=== PATIENT | male | born 1975 | race African-American/Black ===

== ENCOUNTER 2020-11-25 10:04 | Emergency (ER) | payer OTHER, SELFPAY ==
[2020-11-25 10:06] VITALS: BP 137/98; PULSE 87; RESP 18; TEMP 36.8; O2SAT 97; BMI 25.8
--- NOTE | 2020-11-25 10:08 | XR_ITS ---
PROCEDURE: XR ANKLE LT MIN 3V CLINICAL INDICATION: ankle injury COMPARISON: No exams were available for comparison FINDINGS: No fracture or dislocation. No lytic or blastic change. There is normal mineralization. The joint spaces are well-preserved. No significant degenerative/arthritic changes. No erosive changes evident. Other findings:There is soft tissue swelling at the lateral malleolar region. IMPRESSION: Soft tissue swelling otherwise negative Dictated by: Chinmay Benitez MD 11/25/2020 10:55 Chinmay Benitez MD in [place] 11/25/2020 10:55
--- NOTE | 2020-11-25 10:08 | XR_ITS ---
PROCEDURE: XR FOOT LT MIN 3V CLINICAL INDICATION: ankle injury Pain COMPARISON: No exams were available for comparison FINDINGS: Faint calcification is noted at the base and medial aspect of the 2nd metatarsal. There is also a faint trujillo shaped lucency at this area. Nondisplaced fracture is considered. Please correlate with patient's area of pain and tenderness. A faint curvilinear lucency is also noted at the base of the 3rd and 4th metatarsals. These also raise the question of a nondisplaced fractures versus Mach lines. A lucency is also noted along the dorsal anterior aspect of the tarsometatarsal junction on the lateral view. There is good alignment at the 2nd tarsal metatarsal junction. IMPRESSION: Possible nondisplaced fractures at the 2nd 3rd and 4th metatarsals. Consider CT for confirmation. Dictated by: Chinmay Benitez MD 11/25/2020 10:59 Chinmay Benitez MD in [place] 11/25/2020 10:59
--- NOTE | 2020-11-25 10:52 | HMH.EDGENADL ---
ED Disposition Clinical Impression: Lisfranc fracture Disposition: Home, Self-Care Condition on Discharge: Good Additional Instructions: Follow-up with orthopedic surgery within the next few days. Return to emergency department should you have any other concerns within the next few hours take Tylenol as needed for pain - Critical Care Critical Care Time: No Attestation: On , the high probability of a clinically significant, sudden or life threatening deterioration of the following system(s) required my full and direct attention, intervention and personal management. The time I documented below is in addition to time spent performing reported procedures but includes the following listed in this critical care notation. Medical Decision Making - Medical Records Medical records reviewed: Yes: I reviewed the patient's medical records. - [place] Inquiry Pt receiving controlled substance: No Vital Signs: 11/25/20 10:06 11/25/20 12:30 Temperature 98.3 F Temperature Source Oral Pulse Rate 95 H Pulse Rate [Right] 87 Respiratory Rate 18 Blood Pressure 136/94 H Blood Pressure [Right Arm] 137/98 H Blood Pressure Mean [Right Arm] 111 02 Sat by Pulse Oximetry 97 94 L Oxygen Delivery Method Room Air Room Air Medical Decision Narrative: 45-year-old male presents with left ankle injury. He is in no acute distress nontoxic-appearing comfortable in the bed. No other injuries per report. No chest pain abdominal pain. He is able to bear weight at this time. X-ray obtained to assess for underlying fracture. X-ray of foot showed possible Lisfranc fracture, as this was confirmed on CT scan. He is still in no acute distress nontoxic-appearing plan to place in foot boot and refer to orthopedics for outpatient management. He was agreeable to this plan. General Adult HPI - General Chief complaint: Extremity Injury, Lower Stated complaint: Fall w/ left foot pain and lef knee pain Time Seen by Provider: 11/25/20 10:20 Mode of Arrival: Family Vehicle Limitations: No Limitations Description of Symptoms (Recalled from ER Triage Doc. by RN): EMS reports they were called out for a mechanical fall that occurred yesterday. EMS reports patient has a history of falls. Patient denies LOC, denies neck pain, denies any other symptoms. - History of Present Illness HPI narrative: 45-year-old male with pain to left ankle for 1 day. He says he was walking yesterday and twisted his ankle. He did not have a syncope event or loss of consciousness or headache. No nausea or vomiting. No other injuries. He is having worsening pain in the foot worse with movement and there is swelling as well now. Pain is constant dull nonradiating he is able to bear weight - Related Data Home Medications Medication Instructions Recorded Confirmed Lactobacillus acidophilus 10 mg PO DAILY 04/04/18 04/04/18 benztropine 1 mg tablet 1 mg PO BID 04/04/18 04/04/18 divalproex 500 mg tablet,delayed 500 mg PO TID 04/04/18 04/04/18 release fenofibrate nanocrystallized 145 145 mg PO DAILY 04/04/18 04/04/18 mg tablet olanzapine 20 mg tablet 20 mg PO DAILY 04/04/18 04/04/18 omeprazole 40 mg capsule,delayed 40 mg PO DAILY 04/04/18 04/04/18 release perphenazine 16 mg tablet 16 mg PO BID 04/04/18 04/04/18 trazodone 100 mg tablet 100 mg PO DAILY 04/04/18 04/04/18 venlafaxine 150 mg 150 mg PO DAILY 04/04/18 04/04/18 capsule,extended release 24 hr Previous Rx's Medication Instructions Recorded albuterol sulfate 90 mcg/actuation 1 puff INHALATION Q6H PRN #6.7 g 04/04/18 aerosol inhaler Allergies Allergy/AdvReac Type Severity Reaction Status Date / Time No Known Allergies Allergy Verified 04/04/18 19:38 [facility] History - Hepatitis A Screen Drug use history?: No High risk sexual behaviors?: No History of sexually transmitted infection?: No Currently employed?: No Childcare worker?: No Do you have indoor plumbing?: Yes Do you darling
--- NOTE | 2020-11-25 11:24 | CT_ITS ---
PROCEDURE: CT FOOT LT WO CON CLINICAL HISTORY: confirmation of metatarsal fracture of foot on xra Injury with pain COMPARISON: No exams were available for comparison TECHNIQUE: Axial images obtained with sagittal and coronal reformats. All CT scans at the facility use one or more dose reduction, viz: automated exposure control, ma/kV adjustment per patient size (including targeted exams where dose is matched to indication, i.e. head), or iterative reconstruction technique. FINDINGS: The distal tibia, fibula, talus, calcaneus, navicular, and cuboid have an unremarkable appearance. And 11 by 3 mm bony fragment is present in the 1st intermetatarsal space consistent with an avulsion fracture which may be from the distal aspect and lateral aspect of the medial cuneiform. This could also be arising from the proximal aspect of the 1st metatarsal.. Avulsion fracture also suspected at the proximal and lateral aspect of the 1st metatarsal. Avulsion fracture also noted along the dorsal and distal aspect of the medial cuneiform. Comminuted fracture involves the proximal aspect of the 2nd metatarsal. An oblique fracture involves the superior surface wall comminuted fracture involves the posterior surface. There is widening of the 1st intermetatarsal space proximally which measures 7 mm in with. There is 3 mm lateral displacement of the base of the 2nd metatarsal on the mid cuneiform. Longitudinal fracture involves the dorsal proximal aspect of the 3rd metatarsal with a comminuted component of the fracture involving the plantar and proximal aspect of the 3rd metatarsal. There is mild lateral displacement of the 3rd metatarsal by approximately 2-3 mm. A transverse nondisplaced fracture involves the proximal aspect of the 4th metatarsal at the diaphyseal metaphyseal junction. There is diffuse soft tissue swelling along the dorsal aspect of the midfoot and forefoot IMPRESSION: Lisfranc fracture subluxation with fractures involving the proximal aspect of the 1st 2nd 3rd and 4th metatarsals as well as the medial cuneiform with lateral subluxation of the 2nd and 3rd metatarsals and widening of the 1st intermetatarsal space. Dictated by: Chinmay Benitez MD 11/25/2020 12:42 Chinmay Benitez MD in [place] 11/25/2020 12:42
--- NOTE | 2020-11-25 12:09 | PC.NURSE ---
Pt to CT at this time
[2020-11-25 12:30] VITALS: BP 136/94; PULSE 95; O2SAT 94
--- NOTE | 2020-11-25 12:51 | PC.NURSE ---
waiting [employer] operator back from Dr. Licea, left message with office staff.
--- NOTE | 2020-11-25 13:35 | PC.NURSE ---
attempting to call [facility], no answer at this time
--- NOTE | 2020-11-25 14:15 | SW/DCPLANNER ---
I have arranged [employer] for this patient. Per [employer] up driver will be here within next 10 minutes. I will call and inform July in ED.
--- NOTE | 2020-11-25 14:22 | PC.NURSE ---
CALLED DR. LOW'S OFFICE AND LEFT A VOICEMAIL TO RECEIVE A CALL BACK ABOUT THE PATIENT'S APPOINTMENT.
--- NOTE | 2020-11-25 14:25 | PC.NURSE ---
patient has an appointment at Dr. Clayton's office at 1500 on 11/25/20. Mariel Gaytan will made aware
--- NOTE | 2020-11-25 14:32 | PC.NURSE ---
Gave status report to Mariel Gaytan, patient's INTERMEDIATE. Mariel aware of patients 3pm appointment at Dr. Clayton's office
[2020-11-25 14:42] VITALS: BP 132/65; PULSE 76; RESP 16; TEMP 36.8; O2SAT 98
== END 2020-11-25 14:40 | disposition home or self-care (01) ==
PROVIDERS: Emergency Provider Emergency Medicine
DX: S92.315A Nondisplaced fracture of first metatarsal bone, left foot, initial encounter for closed fracture (principal); S92.325A Nondisplaced fracture of second metatarsal bone, left foot, initial encounter for closed fracture; S92.335A Nondisplaced fracture of third metatarsal bone, left foot, initial encounter for closed fracture; S92.345A Nondisplaced fracture of fourth metatarsal bone, left foot, initial encounter for closed fracture; X50.1XXA Overexertion from prolonged static or awkward postures, initial encounter; Y92.019 Unspecified place in single-family (private) house as the place of occurrence of the external cause; K21.9 Gastro-esophageal reflux disease without esophagitis; F20.9 Schizophrenia, unspecified; Z87.820 Personal history of traumatic brain injury; F17.210 Nicotine dependence, cigarettes, uncomplicated
CPT/HCPCS: 73610; 73630; 73700; 99283

== ENCOUNTER → 2020-12-29 10:22 | Outpatient (CLI) | payer OTHER, SELFPAY ==
--- NOTE | 2020-12-29 10:42 | XR_ITS ---
PROCEDURE: XR FOOT WT BEARING LT 3V CLINICAL INDICATION: fracture follow up COMPARISON: CR XR FOOT LT MIN 3V from 11/25/2020 FINDINGS: There is mild widening of the 1st intermetatarsal space with minimal subluxation laterally of the 2nd metatarsal. Healing fractures involve the 2nd 3rd and 4th metatarsals proximally. Other findings:None. IMPRESSION: No change healing fracture 2nd 3rd and 4th metatarsals mild lateral subluxation at the base of the 2nd metatarsal Dictated by: Chinmay Benitez MD 12/29/2020 14:48 Chinmay Benitez MD in [place] 12/29/2020 14:48
== END ==
PROVIDERS: Visit Provider Podiatrist
DX: S92.312D Displaced fracture of first metatarsal bone, left foot, subsequent encounter for fracture with routine healing (principal); S92.322D Displaced fracture of second metatarsal bone, left foot, subsequent encounter for fracture with routine healing; S92.332D Displaced fracture of third metatarsal bone, left foot, subsequent encounter for fracture with routine healing; S92.342D Displaced fracture of fourth metatarsal bone, left foot, subsequent encounter for fracture with routine healing; T14.8XXA Other injury of unspecified body region, initial encounter
CPT/HCPCS: 73630

== ENCOUNTER → 2021-02-02 09:20 | Outpatient (CLI) | payer OTHER, SELFPAY ==
--- NOTE | 2021-02-02 09:27 | XR_ITS ---
PROCEDURE INFORMATION: Exam: XR Left Foot Complete; Alignment Exam date and time: 02/02/21 09:27 AM Age: 45 years old Clinical indication: Pain; Foot; Left; Additional info: Fracture followup TECHNIQUE: Imaging protocol: XR Left foot. Views: 3 or more views. COMPARISON: CR XR FOOT WT BEARING LT 3V 12/29/20 10:59 AM FINDINGS: Bones/joints: Marching fractures of the base of the 2nd, 3rd, and 4th metatarsals. Continued interval healing since comparison 12/29/2020. Soft tissues: Normal. IMPRESSION: Marching fractures of the base of the 2nd, 3rd, and 4th metatarsals. Continued interval healing since comparison 12/29/2020.
== END ==
PROVIDERS: PCP Physician Assistant; Visit Provider Podiatrist
DX: M79.672 Pain in left foot (principal); T14.8XXA Other injury of unspecified body region, initial encounter
CPT/HCPCS: 73630

== ENCOUNTER → 2021-03-02 10:36 | Outpatient (CLI) | payer OTHER, SELFPAY ==
--- NOTE | 2021-03-02 10:43 | XR_ITS ---
PROCEDURE: XR FOOT WT BEARING LT 3V CLINICAL INDICATION: fracture follow up COMPARISON: CR XR FOOT LT MIN 3V from 11/25/[address] FOOT LT WO CON from 11/25/2020 CR XR FOOT WT BEARING LT 3V from 12/29/2020 CR XR FOOT WT BEARING LT 3V from 02/02/2021 FINDINGS: This Lisfranc fracture/subluxation once again noted involving the proximal 1st, 2nd, 3rd, and 4th metatarsals as well as the medial cuneiform with mild lateral subluxation the 2nd metatarsal by approximately 4 mm similar to the previous exam. Degenerative changes with cortical irregularity noted at the base of the 2nd metatarsal. IMPRESSION: No change mildly displaced Lisfranc fracture of the 2nd metatarsal also with nondisplaced fractures of the 1st, 3rd and 4th metatarsals and at the medial cuneiform. Dictated by: Chinmay Benitez MD 03/02/2021 15:01 Chinmay Benitez MD in [place] 03/02/2021 15:01
== END ==
PROVIDERS: PCP Nurse Practitioner; Visit Provider Nurse Practitioner
DX: S92.242A Displaced fracture of medial cuneiform of left foot, initial encounter for closed fracture (principal); S92.312A Displaced fracture of first metatarsal bone, left foot, initial encounter for closed fracture; S92.322A Displaced fracture of second metatarsal bone, left foot, initial encounter for closed fracture; S92.332A Displaced fracture of third metatarsal bone, left foot, initial encounter for closed fracture; S92.342A Displaced fracture of fourth metatarsal bone, left foot, initial encounter for closed fracture
CPT/HCPCS: 73630